=== PATIENT | female | born 1935 | race Caucasian/White ===

== ENCOUNTER → 2018-12-09 | Outpatient (REF) | payer MEDICARE, BC ==
[~2018-12-09] MED LIST: /COSOOPD10 OU; /WARF25TA PO; ACET50TA PO; AMBI5TAB PO; AUGM875T28 PO; BIMA01SOL OU; BRIM1OPD OU; BRIM2OPD OU; CIPR-249 PO; COSO1SOL3 OU; IMIT5SPR; IMMITREX PO; MOTRIN PO; MULTLIQ7 PO; ONDA4TAB6 PO; PERC7.5T12 PO; TRAM50TA2 PO; VITA100066 PO; VITAMIN; VITAMIN D PO; VITMTA PO; [UNRECOGNIZED DRUG - REMARK] OD
[2018-12-09 14:31] LABS: INFLUENZA A AMPLIFICATION NEGATIVE (NEGATIVE); INFLUENZA B AMPLIFICATION NEGATIVE (NEGATIVE)
== END ==
LOC: M LAB REF 13:22
PROVIDERS: ATTEND Nurse Practitioner Adult Health
DX: R50.9 Fever, unspecified (principal)

== ENCOUNTER 2019-01-25 09:17 | Day surgery (SDC) | payer MEDICARE, BC ==
[~2019-01-25] VITALS: Ht 152.4 cm; Wt 74.8 kg
[~2019-01-25 09:17] MED LIST changes: +ACETAMINOPHEN 325 MG TAB PO PRN; +BSS with VANC/TOB/EPI for EYE CASES IR ONE; +CEFUROXIME 1MG/0.1ML INTRACAMERAL INJ As Ordered ONE; +CYCLOPENTOLATE 2% OPHTH SOLN 2ML BTL OS ONE; +HEALON DUET PRO(HEALON 10MG/ML 0.55ML & HEALON ENDOCOAT 30MG/ML 0.85ML) As Ordered ONE; +LIDOCAINE 1% SDV 5 ML VIAL As Ordered ONE; +LIDOCAINE 3.5 % 1ML OPHTH TOPICAL GEL OU ONE; +OFLOXACIN 0.3 % (OCUFLOX) OPTH SOL 5ML OS ONE; +PHENYLEPHRINE 2.5% OPHTH SOL 2ML OS ONE; +PHENYLEPHRINE HCL 10 % OPHTH. SOL 5ML OS PRN; +POVIDONE-IODINE 5% OPHTH PREP SOL 30ML As Ordered ONE; +PROPARACAINE 0.5% OPHTH SOL 15ML OS PRN; +TROPICAMIDE 1% OPHTH SOLN 2ML OS ONE
[2019-01-25] MEDS ORDERED: fentaNYL 100 MCG/2 ML INJECTION (J3010) As Ordered ONE (10:23)
[2019-01-25] MEDS ORDERED: MIDAZOLAM INJ 2 MG/2 ML VIAL (J2250) As Ordered ONE (10:23)
[2019-01-25] MEDS ORDERED: HEALON DUET PRO(HEALON 10MG/ML 0.55ML & HEALON ENDOCOAT 30MG/ML 0.85ML) As Ordered ONE ×2 (10:40→10:51)
[2019-01-25] MEDS ORDERED: NORCO, ANEXSIA 5/325MG TABLET (HYDROcodone/ACETAMINOPHEN) PO PRN (11:15)
[2019-01-25] MEDS ORDERED: TRIMETHOBENZAMIDE 300 MG CAP PO PRN (11:15)
[2019-01-25] MEDS ORDERED: LR 1,000 ML IV SCH (11:15)
[2019-01-25] MEDS ORDERED: AcetaZOLAMIDE 500 MG ER CAP PO ONE (11:15)
[2019-01-25] MEDS ORDERED: fentaNYL 100 MCG/2 ML INJECTION (J3010) IV PRN (11:15)
[2019-01-25] MEDS ORDERED: KETOROLAC 0.5% OPHTH SOLN OS ONE (11:15)
[2019-01-25 11:30] VITALS: BP 140/60
--- NOTE | 2019-01-25 22:17 | RO ---
DATE OF PROCEDURE: 01/25/2019 PREPROCEDURE DIAGNOSIS: Cataract and glaucoma left eye. POSTPROCEDURE DIAGNOSIS: Cataract and glaucoma left eye. PROCEDURE: Phacoemulsification with intraocular lens implantation with the help of Optiwave Refractive Analysis (ORA). Intraocular lens power used was [id number], 21 diopters along with endocyclophotocoagulation and placement of the iStent inject. Reference number is [id number]. SURGEON: Dr. Reba Kuhn SODA TESTER: None. ANESTHESIA: COMPLICATIONS: None. DESCRIPTION OF PROCEDURE: The patient was brought to the operating room and laid in supine position. The eye was prepped and draped in a sterile fashion for ophthalmic surgery and a lid speculum was placed. Side[place] incision was made and EndoCoat was injected into the anterior chamber. Temporal clear corneal incision was made with a 2.5 mm keratome followed by injection of a 7 mm Malyugin ring to dilate the pupil with the help of the Malyugin hook. Capsulorrhexis was then done followed by hydrodissection. Phacoemulsification was done in a divide and conquer method within the capsular bag followed by aspiration of the cortical material using irrigation and aspiration cannula. Healon was then placed into the capsular bag, intraocular pressure was checked and was noted to be satisfactory. Multiple ORA calculations were taken and intraocular lens power chosen. Healon was then placed in the ciliary sulcus after removing the Malyugin ring with the help of the Malyugin hook. Endocyclophotocoagulation was done to 180 degrees at 0.25 milliwatts with the help of the EndoProbe visualizing on the video screen. Good results were noted by shrinking of the ciliary processes. Healon was then placed in the anterior chamber. Patient's head was turned away from the surgeon and under high magnification with the help of the Gonia lens, iStents were placed about 20 degrees apart nasally. Excess viscoelastic was aspirated, wound was hydrated, intracameral moxifloxacin was given and patient was returned to the recovery room after removal of the lid speculum. Postoperative instructions were given in detail in the postoperative area.
== END 2019-01-25 11:38 | disposition home or self-care (01) ==
LOC: M SDC 09:17
PROVIDERS: ATTEND Ophthalmology
DX: H25.9 Unspecified age-related cataract (principal); H21.562 Pupillary abnormality, left eye; H40.812 Glaucoma with increased episcleral venous pressure, left eye; G43.909 Migraine, unspecified, not intractable, without status migrainosus; Z79.899 Other long term (current) drug therapy
CPT/HCPCS: 66183; 66711; 66982; C1783; J2250; J3010; V2632

== ENCOUNTER → 2019-04-06 | Outpatient (CLI) | payer MEDICARE, BC ==
[~2019-04-06] MED LIST changes: -/WARF25TA PO; -ACET50TA PO; -ACETAMINOPHEN 325 MG TAB PO PRN; -BSS with VANC/TOB/EPI for EYE CASES IR ONE; -CEFUROXIME 1MG/0.1ML INTRACAMERAL INJ As Ordered ONE; +COUM1TAB18 PO; -CYCLOPENTOLATE 2% OPHTH SOLN 2ML BTL OS ONE; -HEALON DUET PRO(HEALON 10MG/ML 0.55ML & HEALON ENDOCOAT 30MG/ML 0.85ML) As Ordered ONE; -LIDOCAINE 1% SDV 5 ML VIAL As Ordered ONE; -LIDOCAINE 3.5 % 1ML OPHTH TOPICAL GEL OU ONE; +MAPA500T17 PO; -OFLOXACIN 0.3 % (OCUFLOX) OPTH SOL 5ML OS ONE; -PHENYLEPHRINE 2.5% OPHTH SOL 2ML OS ONE; -PHENYLEPHRINE HCL 10 % OPHTH. SOL 5ML OS PRN; -POVIDONE-IODINE 5% OPHTH PREP SOL 30ML As Ordered ONE; -PROPARACAINE 0.5% OPHTH SOL 15ML OS PRN; -TROPICAMIDE 1% OPHTH SOLN 2ML OS ONE
[2019-04-06 11:01] LABS: HEMATOCRIT 40.9 % (36.0-47.0); HEMOGLOBIN 12.9 g/dl (12.0-15.5); MEAN CORPUSCULAR HEMOGLOBIN 29.5 pg (27.0-33.0); MEAN CORPUSCULAR HGB CONC 31.5 g/dl (32.0-36.5); MEAN CORPUSCULAR VOLUME 93.4 fl (80.0-96.0); PLATELET COUNT, AUTOMATED 311 10^3/uL (150-450); RED BLOOD COUNT 4.38 10^6/uL (4.00-5.40); WHITE BLOOD COUNT 4.8 10^3/uL (4.0-10.0)
[2019-04-06 11:11] LABS: INR 0.94; PROTHROMBIN TIME 12.7 SECONDS (12.1-14.4)
[2019-04-06 11:30] LABS: ALBUMIN 4.1 GM/DL (3.2-5.2); ALT/SGPT 26 U/L (12-78); BILIRUBIN,TOTAL 0.5 MG/DL (0.2-1.0); BLOOD UREA NITROGEN 17 MG/DL (7-18); CALCIUM LEVEL 9.1 MG/DL (8.8-10.2); CARBON DIOXIDE LEVEL 30 MEQ/L (21-32); CHLORIDE LEVEL 106 MEQ/L (98-107); CREATININE FOR GFR 0.82 MG/DL (0.55-1.30); GLOMERULAR FILTRATION RATE > 60.0 (>32); GLUCOSE, FASTING 116 MG/DL (70-100); POTASSIUM SERUM 4.4 MEQ/L (3.5-5.1); SODIUM LEVEL 143 MEQ/L (136-145); TOTAL PROTEIN 6.9 GM/DL (6.4-8.2)
[2019-04-06 11:46] LABS: ERYTHROCYTE SEDIMENTATION RATE 9 mm/hr (0-30)
--- NOTE | 2019-04-06 14:09 | REP ---
Chest two views HISTORY: Preop Comparison: 02/08/2016 A 4 mm parenchymal density is present in the right lower lobe unchanged compared to the previous study. The left lung is clear. The heart is normal in size. The pulmonary vasculature is normal in appearance. The bony structure is intact. IMPRESSION: No acute disease. Electronically Signed by Petr Raygoza MD 04/06/2019 02:00 P
--- NOTE | 2019-04-06 20:54 | ECGEPIP ---
[facility] Test Date: 2019-04-06 Pat Name: PADMINI SUNG Department: Room: - Gender: Female Business Process Engineer: RF : [id number] Requested By: Bella Ingram Order Number: [id number] Reading MD: Zachariah Guerrero Measurements Intervals Palmer Rate: 73 P: 70 VA: 260 QRS: QRSD: 86 T: 60 QT: 421 QTc: 466 Interpretive Statements Normal sinus rhythm with PACs. First-degree AV block Left axis deviation - left anterior hemiblock Somewhat low voltages with slow precordial R-wave progression, persistent S waves V5 and V6, and QS pattern III and aVF; body habitus versus pulmonary disease. Rule out prior septal/ Inferior injury No prior tracing for comparison. Clincal correlation advised Electronically Signed on 04-06-2019 20:53:55 EDT by Zachariah Guerrero
== END ==
LOC: M LAB 10:09
PROVIDERS: ATTEND Orthopaedic Surgery
DX: Z01.818 Encounter for other preprocedural examination (principal); R94.31 Abnormal electrocardiogram [ECG] [EKG]; M17.12 Unilateral primary osteoarthritis, left knee

== ENCOUNTER 2019-04-26 10:46 | Inpatient (IN) | payer MEDICARE, BC ==
--- NOTE | 2019-04-19 10:00 | HPE ---
DATE OF ADMISSION: 04/26/2019 ATTENDING PHYSICIAN: Dr. Juan Jose Duke CHIEF COMPLAINT: Left knee pain and stiffness. HISTORY: This is a pleasant 84-year-old female patient with progressively worsening left knee pain and stiffness. She has failed to improve with conservative management to include injections in the knee. She has pain with weightbearing activities and activities of daily living. She has elected for surgery for her continued symptoms. She has been consented by Dr. Duke for a left total knee arthroplasty. X-rays of her left knee notable for end-stage degenerative changes of the left knee. Medical optimization by Dr. Deshpande. ALLERGIES: No known drug allergies. CURRENT MEDICATIONS: Imitrex nasal inhaler as needed. She has not used that in years. She also has three eye drops prescribed for her for her glaucoma. She will bring those with her to the hospital. She takes vitamin D, and a daily multivitamin. MEDICAL CONDITIONS: End-stage osteoarthritis of the left knee. Glaucoma Migraines. PAST SURGICAL HISTORY: She has had a total knee arthroplasty on the right side. She has had a dilation and curettage. Two breast biopsies. Thyroid removed. FAMILY HISTORY: Heart disease, diabetes. SOCIAL HISTORY: She does not smoke. She does not use alcohol. She continues to work. REVIEW OF SYSTEMS: Denies fever chills. Denies chest pain, shortness of breath or cough. Denies difficulty breathing. Denies abdominal pain. Notes persistent pain in her left knee with activities of daily living. Denies nausea or vomiting. Denies recent upper respiratory (URI) or urinary tract infection (UTI). symptoms. PHYSICAL EXAMINATION: Today this is an alert, well-nourished, well-developed female patient. She ambulates with a limping gait. She favors her left side. Exam of the left knee reveals the skin to be intact. No erythema, edema or ecchymosis. Tenderness both medially and laterally. Range of motion is near full . There is tenderness posteriorly as well. Patellar ground is irritable. The calf is soft, nontender to palpation. She can sensate light touch. She has a well perfused left lower extremity. Neck is supple without adenopathy or jugular venous distention (JVD). Lungs are clear to auscultation without rales or wheeze. Heart regular rate and rhythm. Abdomen: Bowel sounds are present. CURRENT VITAL SIGNS: Blood pressure 125/60, height 60 inches, weight 168 pounds. Pulse 63, respirations 14, temperature 97.9. LABORATORY DATA: PT 12.7, INR 0.94, sed rate 9. Glucose 116, BUN 117, creatinine 0.82, sodium 143, potassium 4.4. WBC count 4.8, RBC count 4.3, hemoglobin 12.9, hematocrit 40.9. EKG: Sinus rhythm with first degree AV block. Chest x-ray: No acute cardiopulmonary disease process noted. IMPRESSION: End-stage osteoarthritis of the left knee. PLAN: She has consented for a left total knee arthroplasty by Dr. Duke. PAN
[~2019-04-26] VITALS: Ht 152.4 cm; Wt 77.0 kg
[2019-04-26] VITALS (19 sets, daily range): BP systolic 99–161; BP diastolic 49–75
[~2019-04-26 10:46] MED LIST changes: +ACETAMINOPHEN 500 MG TAB PO ONE; +BRIM1OPD OD; -BRIM1OPD OU; +LIDOCAINE 1% MDV 20ML VIAL SQ PRN; +LR 1,000 ML IV ONE
[2019-04-26] MEDS ORDERED: MIDAZOLAM INJ 2 MG/2 ML VIAL (J2250) As Ordered ONE (11:52)
[2019-04-26] MEDS ORDERED: fentaNYL 100 MCG/2 ML INJECTION (J3010) As Ordered ONE (11:52)
[2019-04-26] MEDS: fentaNYL 100 MCG/2 ML INJECTION (J3010) IV PRN ×2 (12:03→12:06)
[2019-04-26] MEDS ORDERED: BUPIVACAINE LIPOSOME/PF 1.3% 20ML VIAL (13.3MG/ML)(EXPAREL)(C9290 PER1MG) As Ordered ONE (12:18)
[2019-04-26] MEDS ORDERED: MIDAZOLAM INJ 2 MG/2 ML VIAL (J2250) IV PRN (12:30)
[2019-04-26] MEDS ORDERED: PROPOFOL 200 MG/20 ML VIAL As Ordered ONE (12:37)
[2019-04-26] MEDS ORDERED: LIDOCAINE 2% INJ 100 MG/5 ML SDV (FOR ANES.) As Ordered ONE (12:37)
[2019-04-26] MEDS ORDERED: BUPIVACAINE/DEXTROSE 0.75% 2 ML AMP As Ordered ONE (13:04)
[2019-04-26] MEDS ORDERED: dexameTHASONE 10 MG/1 ML VIAL PRES.FREE (J1100) ONE (13:12)
[2019-04-26] MEDS ORDERED: EPINEPHrine INJ 1 MG/ML 1ML AMP ONE (13:12)
[2019-04-26] MEDS ORDERED: ROPIvacaine 0.5% 30 ML INJECTION (J2795 PER 1MG) ONE (13:12)
[2019-04-26] MEDS ORDERED: PHENYLephrine HCL 500 MCG/5 ML (100MCG/ML) SYRINGE (J2370) As Ordered ONE (13:30)
[2019-04-26] MEDS ORDERED: ePHEDrine SULFATE 25 MG/5 ML(5MG/ML) SYRINGE As Ordered ONE (13:41)
[2019-04-26] MEDS ORDERED: BUPIVACAINE HCL 0.25% 10 ML VIAL As Ordered ONE (13:52)
[2019-04-26] MEDS ORDERED: ceFAZolin 1GM INJ (J0690 PER 500MG) As Ordered ONE (13:52)
[2019-04-26] MEDS ORDERED: EPINEPHrine INJ 1 MG/ML 1ML AMP As Ordered ONE (13:53)
[2019-04-26] MEDS ORDERED: PERCOCET 5MG/325MG TAB PO PRN (15:15)
[2019-04-26] MEDS ORDERED: ACETAMINOPHEN TAB 650MG DOSE (2X325MG) PO PRN (15:15)
[2019-04-26] MEDS ORDERED: ONDANSETRON 4MG/2ML VIAL (J2405) IV PRN (15:15)
[2019-04-26] MEDS ORDERED: FLEET ENEMA PR PRN (15:15)
[2019-04-26] MEDS ORDERED: METOCLOPRAMIDE INJ 10MG/2ML VIAL (J2765) IV PRN (15:15)
[2019-04-26] MEDS ORDERED: LR 1,000 ML IV SCH ×2 (15:15)
[2019-04-26] MEDS ORDERED: fentaNYL 100 MCG/2 ML INJECTION (J3010) IV PRN (15:15)
[2019-04-26] MEDS ORDERED: HYDROMORPHONE HCL 0.5 MG/ 0.5 ML SYRINGE (J1170 PER 1) IV PRN (15:30)
--- NOTE | 2019-04-26 15:37 | CR.PDOC ---
General Date of Consultation: Apr 26, 2019 Consultation REASON FOR CONSULTATION/CHIEF COMPLAINT: Who presented to [facility] for an elective procedure with orthopedic surgery HISTORY OF PRESENT ILLNESS: Patient is an 84-year-old female with PMHx of glaucoma and migraine headaches as well as end-stage osteoarthritis who presented to the [facility] for an elective orthopedic procedure. Patient was expressing persistent left knee pain from her osteoarthritis and had failed conservative therapy. She has been scheduled for an elective procedure or when she has received medical clearance from Dr. Deshpande. Patient had received blood work, EKG and CXR for clearance. Hospitalist services called for medical management. Patient was seen postoperatively. She denies any headache, nausea, vomiting, chest pain, shortness of breath, Anshul pain, constipation, diarrhea or discomfort with urination. Patient is does not report any fevers or chills in the last 2 weeks. ALLERGIES: Please see below. HOME MEDICATIONS: Please see below. PAST MEDICAL HISTORY: Glaucoma Migraine headaches PAST SURGICAL HISTORY: Total right knee arthroplasty 2013 Dilation and curettage greater than 20 years ago Hysterectomy 2 breast biopsies that were negative for malignancy Parathyroid resection FAMILY HISTORY: - Mother with a history of coronary artery disease and heart attack as well as uterine cancer - Father unknown history SOCIAL HISTORY: - Denies the use of alcohol, tobacco or illicit drugs - Denies recent travel or sick contacts - Lives with - Occupation; used to work at the [employer] plant in [place] REVIEW OF SYSTEMS: 10 point review of systems complete, all negative otherwise stated in HPI PHYSICAL EXAMINATION: - Vitals: BP 112/58, HR 93, RR 18, Sat 96%RA, Temp 96.1F - General: Lying in bed, No acute distress, Speaking in full sentences, AAOx3 - HEENT: NC, AT, PERRLA - CVS: RRR, +S1S2, - Murmurs / rubs / gallops - Lungs: Fair air entry bilaterally, No wheezing / rales / rhonchi - Abdomen: Soft, Non-distended, Non-tender - Extremities: No lower extremity edema, No calf tenderness, L knee in dressing - Neuro: No focal motor or sensory deficit - Skin: No visible rashes LABORATORY DATA: Please see below. ASSESSMENT/PLAN: Left knee pain - likely 2/2 osteoarthritis - s/p total left knee arthroplasty (POD#0) - Presented to [facility] for an elective procedure with orthopedic surgery - Patient has received medical clearance from her outpatient provider, Dr. Deshpande - Pain control, anticoagulation and physical therapy at the direction of orthopedic surgery Migraine headaches - Currently does not experience any headaches - Patient take Sumatriptan PRN Glaucoma - c/w Latanoprost (for Bimatoprost), Dorzolamide / Timolol, Brimonidine Vitamin D deficiency - c/w Vitamin D supplementation DVT prophylaxis - as per orthopedic surgery Vital Signs/I&O Vital Signs Date Time Temp Pulse Resp B/P (MAP) Pulse Ox O2 Delivery O2 Flow Rate FiO2 04/26/19 15:20 91 18 121/58 (79) 93 04/26/19 15:05 96.1 04/26/19 13:00 3 Allergies Coded Allergies: No Known Allergies (Unverified , 04/26/19) Home Medications Scheduled Bimatoprost (Lumigan) 50 Drop/2.5 Ml Victoria, 1 DROP OU QHS, (Reported) Brimonidine Tartrate (Alphagan P) 100 Drop/5 Ml Soln, 1 DROP OD BID, (Reported) Cholecalciferol (Vitamin D3) (Vitamin D3) 1,000 Unit Tab, 1,000 UNIT PO DAILY, (Reported) Dorzolamide HCl/Timolol Maleat (Cosopt Eye Drops) 1 Ml Soln, 1 DROP OU BID, (Reported) Multivitamins (Thera M Plus Tablet) 1 Tab Tab, 1 TAB PO DAILY, (Reported) Scheduled PRN Sumatriptan (Imitrex) 5 Mg/Act Spr, 20 MG NA PRN PRN for MIGRAINE, (Reported) DINAH CORTEZ MD Apr 26, 2019 15:37
[2019-04-26] MEDS ORDERED: SUMAtriptan SUCCINATE 25 MG TAB PO PRN (15:45)
--- NOTE | 2019-04-26 15:58 | REP ---
93 views postoperative study: There is a total knee arthroplasty with the components tightly applied and in satisfactory positions alignment. Skin rayray are incidentally identified. Electronically Signed by Saad Weathers MD 04/26/2019 03:50 P
[2019-04-26] MEDS: HYDROMORPHONE HCL 0.5 MG/ 0.5 ML SYRINGE (J1170 PER 1) IV PRN ×2 (17:46→22:25)
[2019-04-26] MEDS: BRIMONIDINE 0.1% OPHTH SOLN 5 ML OD SCH (21:44)
[2019-04-26] MEDS: LATANOPROST 0.005% OPHTH SOLN 2.5 ML OU SCH (21:47)
[2019-04-26] MEDS: COSOPT OCUMETER PLUS 10ML (DORZOLAMIDE/TIMOLOL) OU SCH (21:47)
[2019-04-27] MEDS: HYDROMORPHONE HCL 0.5 MG/ 0.5 ML SYRINGE (J1170 PER 1) IV PRN (05:24)
[2019-04-27 05:50] VITALS: BP 123/65
[2019-04-27] MEDS ORDERED: PERCOCET 5MG/325MG TAB PO PRN (06:00)
[2019-04-27 06:38] LABS: HEMATOCRIT 31.4 % (36.0-47.0); MEAN CORPUSCULAR HEMOGLOBIN 29.2 pg (27.0-33.0); MEAN CORPUSCULAR HGB CONC 31.8 g/dl (32.0-36.5); MEAN CORPUSCULAR VOLUME 91.8 fl (80.0-96.0); PLATELET COUNT, AUTOMATED 263 10^3/uL (150-450); RED BLOOD COUNT 3.42 10^6/uL (4.00-5.40)
[2019-04-27 07:06] LABS: BLOOD UREA NITROGEN 14 MG/DL (7-18); CALCIUM LEVEL 8.3 MG/DL (8.8-10.2); CARBON DIOXIDE LEVEL 28 MEQ/L (21-32); CHLORIDE LEVEL 103 MEQ/L (98-107); CREATININE FOR GFR 0.68 MG/DL (0.55-1.30); GLOMERULAR FILTRATION RATE > 60.0 (>32); GLUCOSE, FASTING 116 MG/DL (70-100); POTASSIUM SERUM 4.2 MEQ/L (3.5-5.1); SODIUM LEVEL 138 MEQ/L (136-145)
[2019-04-27] MEDS: VITAMIN D 1,000 INTERNATIONAL UNITS TABLET PO SCH (08:05)
[2019-04-27] MEDS: MIRALAX *UNIT DOSE* 17GM PACKET PO SCH (08:05)
[2019-04-27] MEDS: MULTIVITAMINS/MINERALS THERAP 1 TAB PO SCH (08:05)
[2019-04-27] MEDS: MOM 30ML SUSPENSION UDC PO SCH (08:05)
[2019-04-27] MEDS: COSOPT OCUMETER PLUS 10ML (DORZOLAMIDE/TIMOLOL) OU SCH ×2 (08:06→20:34)
[2019-04-27] MEDS: BRIMONIDINE 0.1% OPHTH SOLN 5 ML OD SCH ×2 (08:06→20:34)
--- NOTE | 2019-04-27 09:07 | RO ---
DATE OF PROCEDURE: 04/26/2019 PREOPERATIVE DIAGNOSIS: Varus tricompartmental degenerative arthritis of the left knee. POSTOPERATIVE DIAGNOSIS: Varus tricompartmental degenerative arthritis of the left knee. PROCEDURE: Left total knee arthroplasty using a size 5 cruciate retaining femoral component and a size tibial tray, 10 mm rotating platform and polyethylene insert and 35 mm polyethylene button. All of the bones were cemented. Prostheses made by [employer] and [employer] knee. SURGEON: Dr. Bella Duke CUT OFF MACHINE OPERATOR: Mr. Bahman Gonzalez ANESTHESIA: Left femoral nerve block and then a spinal anesthetic. COMPLICATIONS: None. SPECIMENS: Joint surface. ESTIMATED BLOOD LOSS: 20 mL. PROCEDURE: Antibiotics were given intravenously preoperatively and then a successful left femoral nerve block and then spinal anesthetic was induced. Tourniquet was placed left upper thigh and not inflated. Left lower extremity was carefully prepped and draped in the usual sterile fashion and elevated and after an appropriate time out the tourniquet was inflated. A longitudinal incision was made for a medial parapatellar approach to the knee. Bovie cautery was used to coagulate the crossing vessels. A medial parapatellar arthrotomy was performed. Subperiosteal dissection along the proximal medial and lateral tibial plateau was then performed and the patella was everted and the knee flexed. Drill was placed down the center of the femoral canal followed the intramedullary anabel and the distal femoral cutting jig set at 5 degree angle at 9 mm resection level for a left knee. The block was pinned into position. Distal femoral cut was performed. AP sizing jig measured for a size 5. 3 degrees of external dialed in and the pins were placed. 4-in-block applied. Anterior and posterior chamfer cuts were performed followed by the sulcus osteotomy. We then exposed the proximal tibia used the extramedullary alignment jig to estimate being parallel to the mechanical axis referencing off the very deeply dished medial and tibial condyle and then I checked on the good side. We are taking about 10 mm. Thus I pinned the block secondary check with an extramedullary anabel confirmed we appeared to be parallel to the mechanical axis. Thus the proximal tibial osteotomy was performed and then we placed the laminar harvest contractor laterally and performed a completion medial meniscectomy debridement of the posterior medial osteophytes. Placed one harvest contractor medially and then debrided the posterolateral osteophytes and due to completion partial lateral meniscectomy .The spacer block fit reasonably symmetrically but she was tight medially and I did go back and do an additional posteromedial release all the way back around the tibia and this did improve her tightness medially. Eventually we were able to get up to a size 10 in both flexion and extension and this had reasonable stability to varus, valgus stress testing. We closed the proximal tibia, sized for a #5 tray which is pinned into position and then I did shave off the additional medial bone along the medial edge of the tray to allow for further medial release. I did go back also and release some of the PCL to help minimize any posteromedial tightness. The trial polyethylene was then placed and the trial femoral component fit nicely and she has good stability to varus, valgus and AP stress testing. We brought the knee into extension everted the patella and performed a patellar osteotomy, lug hole sized for a 35 button and lug hole was drilled, trial placed and patellofemoral tracking was anatomic. We drilled the lug holes for the femur. We then removed all the trial components and placed Exparel in the subperiosteal tissues on the distal femur and the proximal tibia and then Mr. Gonzalez mixed the cement on the back table as I prepared the bony surfaces for cementing with a copious amount of pulsatile lavage irrigant solution. He was also critical to the success of this difficult operation by helping with appropriate soft-tissue retraction and help to manipulate the knee, helped to mix the cement, helped to close the wound, helped to prepare the patient and amongst many other tasks allowing me to perform the operation smoothly, efficiently and safely. Once all of the bony surfaces were thoroughly irrigated and dried I cemented the tibial tray and removed excess cement and placed the polyethylene and cemented the femoral component and removed excess cement and brought the knee into extension, everted the patella and then cemented the patellar component and removing excess cement and held it with a clamp with the knee in extension until the cement hardened and as we were waiting we copiously irrigated out the knee joint again and placed TXA and began closing the apex of the arthrotomy with two #1 PDS sutures and the medial parapatellar area was closed with a #1 PDS suture a running a double arm #1 Stratafix used to close the capsule and we irrigated between layers, let the tourniquet down at this point. Closed the deep subdermal tissues with interrupted #2-0 PDS sutures. Skin was closed with rayray covered by Adaptic and an Optifoam dry sterile bulky dressing. She was then transferred to the recovery room in stable condition. There are no intraoperative complications.
--- NOTE | 2019-04-27 10:15 | IPNPDOC ---
Text Note Date of Service The patient was seen on 04/27/19. NOTE Subjective: Patient is an 84-year-old female with PMHx of glaucoma and migraine headaches as well as end-stage osteoarthritis who presented to the [facility] for an elective orthopedic procedure. Patient was expressing persistent left knee pain from her osteoarthritis and had failed conservative therapy. She has been scheduled for an elective procedure or when she has received medical clearance from Dr. Deshpande. Patient had received blood work, EKG and CXR for clearance. Hospitalist services called for medical management. Patient was seen and examined at the bedside. Patient reports that she denies any chest pain, shortness breath, palpitations. She has been out of bed, but still reports some discomfort to her left knee. She has not yet had any bowel movements or passed any gas. Objective: Vitals (See below) General: Lying in bed, no acute distress, comfortable, AAOx3 HEENT: NC, AT CVS: +S1S2 Lungs: Fair air entry b/l, -w/r/r Abdomen: Soft, ND, NT Extremities: - Edema, - Calf tenderness, L knee in dressing Assessment and plan: Left knee pain - likely 2/2 osteoarthritis - s/p total left knee arthroplasty (POD#1) - Presented to [facility] for an elective procedure with orthopedic surgery - Patient has received medical clearance from her outpatient provider, Dr. Deshpande - Pain control, anticoagulation and physical therapy at the direction of orthopedic surgery - Will work with PT today; anticipate discharge today Migraine headaches - Currently does not experience any headaches - Patient take Sumatriptan PRN; will c/w Sumatriptan PO while inpatient Glaucoma - c/w Latanoprost (for Bimatoprost), Dorzolamide / Timolol, Brimonidine Vitamin D deficiency - c/w Vitamin D supplementation DVT prophylaxis - as per orthopedic surgery VS,Fishbone, I+O VS, Fishbone, I+O Laboratory Tests 04/27/19 06:13 Red Blood Count 3.42 L, Mean Corpuscular Volume 91.8, Mean Corpuscular Hemoglobin 29.2, Mean Corpuscular Hemoglobin Concent 31.8 L, Red Cell Distribution Width 13.8, Calcium Level 8.3 L Vital Signs Date Time Temp Pulse Resp B/P (MAP) Pulse Ox O2 Delivery O2 Flow Rate FiO2 04/27/19 08:06 18 04/27/19 05:50 98.1 86 123/65 (84) 94 04/26/19 13:00 3 I&O- Last 24 Hours up to 6 AM 04/27/19 06:00 Intake Total 1140 ml Output Total 1700 ml Balance -560 ml DINAH CORTEZ MD Apr 27, 2019 10:15
[2019-04-27] MEDS ORDERED: MORPHINE 4 MG/ML 1ML VIAL/SYRINGE (J2270) IV PRN (10:45)
[2019-04-27 14:00] VITALS: BP 118/62
[2019-04-27] MEDS: ACETAMINOPHEN 500 MG TAB PO SCH ×2 (14:16→20:33)
[2019-04-27] MEDS: traMADol 50 MG TAB PO PRN ×2 (14:16→18:35)
[2019-04-27] MEDS ORDERED: PROMETHAZINE INJ 25 MG/ML VIAL (J2550) As Ordered ONE (15:49)
[2019-04-27] MEDS: RIVAROXABAN 10 MG TAB (XARELTO) PO SCH (18:34)
[2019-04-27] MEDS: LATANOPROST 0.005% OPHTH SOLN 2.5 ML OU SCH (20:34)
[2019-04-27 22:00] VITALS: BP 124/55
[2019-04-28] MEDS: traMADol 50 MG TAB PO PRN ×4 (04:31→17:31)
[2019-04-28] MEDS: ACETAMINOPHEN 500 MG TAB PO SCH ×3 (05:00→21:00)
[2019-04-28] MEDS ORDERED: XARE10TA PO (05:54)
[2019-04-28] MEDS ORDERED: TRAM50TA2 PO (05:54)
[2019-04-28 06:00] VITALS: BP 141/77
[2019-04-28 06:51] LABS: HEMATOCRIT 28.9 % (36.0-47.0); HEMOGLOBIN 9.2 g/dl (12.0-15.5); MEAN CORPUSCULAR HEMOGLOBIN 28.8 pg (27.0-33.0); MEAN CORPUSCULAR HGB CONC 31.8 g/dl (32.0-36.5); MEAN CORPUSCULAR VOLUME 90.3 fl (80.0-96.0); PLATELET COUNT, AUTOMATED 223 10^3/uL (150-450); WHITE BLOOD COUNT 8.5 10^3/uL (4.0-10.0)
[2019-04-28 07:11] LABS: BLOOD UREA NITROGEN 16 MG/DL (7-18); CARBON DIOXIDE LEVEL 29 MEQ/L (21-32); CHLORIDE LEVEL 101 MEQ/L (98-107); CREATININE FOR GFR 0.56 MG/DL (0.55-1.30); GLOMERULAR FILTRATION RATE > 60.0 (>32); GLUCOSE, FASTING 120 MG/DL (70-100); SODIUM LEVEL 137 MEQ/L (136-145)
[2019-04-28] MEDS: MOM 30ML SUSPENSION UDC PO SCH (08:54)
[2019-04-28] MEDS: MIRALAX *UNIT DOSE* 17GM PACKET PO SCH (08:54)
[2019-04-28] MEDS: VITAMIN D 1,000 INTERNATIONAL UNITS TABLET PO SCH (08:55)
[2019-04-28] MEDS: MULTIVITAMINS/MINERALS THERAP 1 TAB PO SCH (08:55)
[2019-04-28] MEDS: BRIMONIDINE 0.1% OPHTH SOLN 5 ML OD SCH ×2 (08:56→20:58)
[2019-04-28] MEDS: COSOPT OCUMETER PLUS 10ML (DORZOLAMIDE/TIMOLOL) OU SCH ×2 (08:56→20:58)
--- NOTE | 2019-04-28 11:11 | IPNPDOC ---
Text Note Date of Service The patient was seen on 04/28/19. NOTE Subjective: Patient is an 84-year-old female with PMHx of glaucoma and migraine headaches as well as end-stage osteoarthritis who presented to the [facility] for an elective orthopedic procedure. Patient was expressing persistent left knee pain from her osteoarthritis and had failed conservative therapy. She has been scheduled for an elective procedure or when she has received medical clearance from Dr. Deshpande. Patient had received blood work, EKG and CXR for clearance. Hospitalist services called for medical management. Patient was seen and examined at the bedside. Patient reports that this morning she was experiencing worsening of her pain. Patient denies any chest pain, short of breath or palpitations. Denies any urinary discomfort. Denies any abdominal pain Objective: Vitals (See below) General: Lying in bed, no acute distress, comfortable, AAOx3 HEENT: NC, AT CVS: +S1S2 Lungs: Air entry is fair bilaterally without rhonchi, rales or wheezing Abdomen: Soft, nondistended and nontender Extremities: No evidence of lower extremity edema, - Calf tenderness, L knee in dressing Assessment and plan: Left knee pain - likely 2/2 osteoarthritis - s/p total left knee arthroplasty (POD#2) - Presented to [facility] for an elective procedure with orthopedic surgery - Patient has received medical clearance from her outpatient provider, Dr. Deshpande - Pain control, anticoagulation and physical therapy at the direction of orthopedic surgery - c/w PT; possible discharge today Migraine headaches - Currently does not experience any headaches - Patient take Nasal Sumatriptan PRN; will c/w Sumatriptan PO while inpatient Glaucoma - c/w Latanoprost (for Bimatoprost), Dorzolamide / Timolol, Brimonidine Vitamin D deficiency - c/w Vitamin D supplementation DVT prophylaxis - as per orthopedic surgery Disposition: - Awaiting PT clearance; possible DC today VS,Fishbone, I+O VS, Fishbone, I+O Laboratory Tests 04/28/19 06:35 Red Blood Count 3.20 L, Mean Corpuscular Volume 90.3, Mean Corpuscular Hemoglobin 28.8, Mean Corpuscular Hemoglobin Concent 31.8 L, Red Cell Distribution Width 13.9, Calcium Level 8.0 L Vital Signs Date Time Temp Pulse Resp B/P (MAP) Pulse Ox O2 Delivery O2 Flow Rate FiO2 6/26/19 08:55 18 04/28/19 06:00 98.1 80 141/77 (98) 97 04/26/19 13:00 3 I&O- Last 24 Hours up to 6 AM 04/28/19 06:00 Intake Total 840 ml Output Total 720 ml Balance 120 ml DINAH CORTEZ MD Apr 28, 2019 11:11
[2019-04-28 14:00] VITALS: BP 135/72
[2019-04-28] MEDS: RIVAROXABAN 10 MG TAB (XARELTO) PO SCH (17:30)
[2019-04-28] MEDS: LATANOPROST 0.005% OPHTH SOLN 2.5 ML OU SCH (20:58)
[2019-04-28 22:00] VITALS: BP 118/62
[2019-04-29 06:00] VITALS: BP 123/62
[2019-04-29] MEDS: ACETAMINOPHEN 500 MG TAB PO SCH (06:04)
[2019-04-29] MEDS: traMADol 50 MG TAB PO PRN (06:04)
[2019-04-29 07:24] LABS: HEMATOCRIT 29.3 % (36.0-47.0); HEMOGLOBIN 9.3 g/dl (12.0-15.5); MEAN CORPUSCULAR HGB CONC 31.7 g/dl (32.0-36.5); MEAN CORPUSCULAR VOLUME 94.5 fl (80.0-96.0); PLATELET COUNT, AUTOMATED 220 10^3/uL (150-450); WHITE BLOOD COUNT 7.6 10^3/uL (4.0-10.0)
[2019-04-29 07:49] LABS: BLOOD UREA NITROGEN 13 MG/DL (7-18); CARBON DIOXIDE LEVEL 30 MEQ/L (21-32); CHLORIDE LEVEL 104 MEQ/L (98-107); CREATININE FOR GFR 0.61 MG/DL (0.55-1.30); GLOMERULAR FILTRATION RATE > 60.0 (>32); GLUCOSE, FASTING 96 MG/DL (70-100); POTASSIUM SERUM 3.9 MEQ/L (3.5-5.1); SODIUM LEVEL 138 MEQ/L (136-145)
[2019-04-29] MEDS: MOM 30ML SUSPENSION UDC PO SCH (09:00)
[2019-04-29] MEDS: MIRALAX *UNIT DOSE* 17GM PACKET PO SCH (09:00)
[2019-04-29] MEDS: VITAMIN D 1,000 INTERNATIONAL UNITS TABLET PO SCH (09:31)
[2019-04-29] MEDS: MULTIVITAMINS/MINERALS THERAP 1 TAB PO SCH (09:32)
[2019-04-29] MEDS: COSOPT OCUMETER PLUS 10ML (DORZOLAMIDE/TIMOLOL) OU SCH (09:33)
[2019-04-29] MEDS: BRIMONIDINE 0.1% OPHTH SOLN 5 ML OD SCH (09:33)
[2019-04-29 10:16] VITALS: BP 122/60
[2019-04-29 10:31] VITALS: BP 122/60
--- NOTE | 2019-05-03 13:30 | DSES ---
DATE OF ADMISSION: 04/26/2019 DATE OF DISCHARGE: 04/29/2019 ADMITTING DIAGNOSIS: Osteoarthritis of left knee. OTHER DIAGNOSES: 1. Glaucoma. 2. Migraines. DISCHARGE DIAGNOSIS: Osteoarthritis left knee status post left total knee arthroplasty. OPERATION PERFORMED: Left total knee arthroplasty. HISTORY: This is a pleasant, 84-year-old female patient with progressively worsening left knee pain and stiffness. She failed to improve with conservative management. She was admitted for elective knee replacement on the left side. HOSPITAL COURSE: The patient was admitted on the day of surgery and underwent a left total knee arthroplasty which was uneventful. She did well in the postoperative period and her hospital course was without complications. She was up with physical therapy per the protocol and her pain was controlled. On the day of discharge, she was doing well and weight bearing as tolerated on her left lower extremity. She will move her left knee to prevent stiffness. She will use thromboembolic deterrent (YUE) stockings for 30 days postoperatively for deep vein thrombosis (DVT) prophylaxis. She will use Xarelto 10 mg per the protocol. She will resume her preoperative medications and diet. She will use oral pain medications for pain control. She will followup in our office in 10-14 days for surgical followup. Please refer to the medical record for further details.
== END 2019-04-29 12:45 | disposition home or self-care (01) | DRG 470 ==
LOC: M OR 10:46 → M MS5PR 16:00
PROVIDERS: ADMIT Orthopaedic Surgery; ATTEND Orthopaedic Surgery
PROC: 0SRD0J9 Replacement of Left Knee Joint with Synthetic Substitute, Cemented, Open Approach (ICD-10-PCS; principal; 2019-04-26 13:30)
DX: M17.12 Unilateral primary osteoarthritis, left knee (principal); G43.909 Migraine, unspecified, not intractable, without status migrainosus; H40.9 Unspecified glaucoma; Z96.651 Presence of right artificial knee joint; Z79.899 Other long term (current) drug therapy; E55.9 Vitamin D deficiency, unspecified

== ENCOUNTER 2019-05-05 11:37 | Emergency (ER) | payer MEDICARE, BC ==
[~2019-05-05] VITALS: Ht 152.4 cm; Wt 77.3 kg
[~2019-05-05 11:37] MED LIST changes: -ACETAMINOPHEN 500 MG TAB PO ONE; -LIDOCAINE 1% MDV 20ML VIAL SQ PRN; -LR 1,000 ML IV ONE; +XARE10TA PO
[2019-05-05] MEDS ORDERED: NS 1,000 ML IV SCH (13:04)
[2019-05-05] MEDS ORDERED: MORPHINE 4 MG/ML 1ML VIAL/SYRINGE (J2270) IV ONE (13:15)
--- NOTE | 2019-05-05 13:55 | REP ---
Clinical: Pain. Technique: AP, lateral, bilateral oblique views of the left ankle. Findings: Age-related osteopenia and degenerative changes are appreciated. Possible old fracture involving the fibular tip should be correlated clinically. Overlying lateral soft tissue swelling suggested. No further obvious acute fracture dislocation. Lateral view demonstrates calcaneal heal spur. Impression: Age-related degenerative changes. Lateral soft tissue swelling. Suspected old fibular tip fracture. Electronically Signed by Naeem Figueroa MD 05/05/2019 01:46 P
--- NOTE | 2019-05-05 13:56 | REP ---
Clinical: Pain. Technique: AP and lateral views of the left tibia / fibula. Findings: The patient is known to be status post left knee arthroplasty. Osteopenia and degenerative changes involving the tibia / fibula and ankle noted. No obvious acute fracture or dislocation. Suspected old distal fibular tip fracture. Calcaneal heal spur identified. Impression: Status post left knee arthroplasty. Suspected age-related changes as noted above. Electronically Signed by Naeem Figueroa MD 05/05/2019 01:48 P
--- NOTE | 2019-05-05 13:57 | REP ---
Clinical: Status post knee replacement. Technique AP, lateral, and bilateral oblique views of the left knee. Findings: The patient is status post left knee replacement with normal positioning and appearance to the femoral and tibial components. Overlying postsurgical changes appreciated. Impression: Status post left knee replacement. Postsurgical changes. No further acute pathology appreciated Electronically Signed by Naeem Figueroa MD 05/05/2019 01:49 P
--- NOTE | 2019-05-05 14:09 | REP ---
Left lower extremity Duplex Doppler venous ultrasound: Real time compression and duplex Doppler interrogation of the left lower extremity deep venous system is performed. The left common femoral, superficial femoral and popliteal veins are fully compressible with transducer pressure and demonstrate normal spontaneous and phasic flow, without evidence of deep venous thrombosis. Impression: No evidence of deep venous thrombosis of the left lower extremity femoral popliteal venous system. Electronically Signed by Saad Hudson MD 05/05/2019 02:01 P
[2019-05-05 14:27] LABS: BASO % 0.3 % (0.0-1.0); EOS # 0.4 10^3/uL (0.0-0.50); EOS % 4.5 % (0.0-3.0); HEMATOCRIT 33.8 % (36.0-47.0); HEMOGLOBIN 10.5 g/dl (12.0-15.5); LYMPH # 1.5 10^3/uL (1.5-4.5); MEAN CORPUSCULAR HEMOGLOBIN 29.6 pg (27.0-33.0); MEAN CORPUSCULAR HGB CONC 31.1 g/dl (32.0-36.5); MEAN CORPUSCULAR VOLUME 95.2 fl (80.0-96.0); MONO # 0.8 10^3/uL (0.0-0.8); MONO % 9.2 % (0.0-5.0); NEUTROPHILS % 68.3 % (36.0-66.0); PLATELET COUNT, AUTOMATED 428 10^3/uL (150-450); RED BLOOD COUNT 3.55 10^6/uL (4.00-5.40); WHITE BLOOD COUNT 8.7 10^3/uL (4.0-10.0)
[2019-05-05 14:36] LABS: INR 1.11
[2019-05-05 14:37] LABS: PARTIAL THROMBOPLASTIN TIME 33.7 SECONDS (25.0-38.4)
[2019-05-05 14:51] LABS: BLOOD UREA NITROGEN 15 MG/DL (7-18); CARBON DIOXIDE LEVEL 32 MEQ/L (21-32); CHLORIDE LEVEL 99 MEQ/L (98-107); CREATININE FOR GFR 0.75 MG/DL (0.55-1.30); GLOMERULAR FILTRATION RATE > 60.0 (>32); GLUCOSE, FASTING 90 MG/DL (70-100); POTASSIUM SERUM 4.1 MEQ/L (3.5-5.1); SODIUM LEVEL 137 MEQ/L (136-145)
[2019-05-05 15:05] LABS: ERYTHROCYTE SEDIMENTATION RATE 56 mm/hr (0-30)
[2019-05-05] MEDS ORDERED: CEPHALEXIN 500 MG CAP PO ONE (18:00)
[2019-05-05] MEDS ORDERED: KEFL500C17 PO (18:01)
[2019-05-05 18:29] VITALS: BP 138/66
--- NOTE | 2019-05-05 19:14 | CR ---
DATE OF CONSULTATION: 05/05/2019 INDICATION: Possible left leg cellulitis. HISTORY OF PRESENT ILLNESS: Shelly is a pleasant 84-year-old female who underwent a left total knee arthroplasty by Dr. Duke around that 04/26/2019. She was scheduled to start physical therapy this morning, but actually presented to the emergency room (ER) with worsening pain in her ankle and foot for 24 hours. Patient specifically denied any fevers, chills or sweats. She specifically denies any worsening knee pain. Her pain is really down in the foot and ankle. She points to the heel pads as the area of maximal pain. She denies any worsening stiffness in the knee. For the rest the patient's past medical history, past surgical history, medications, allergies, social history and review of systems, please see the patient's recent history and physical (H and P) from her total knee arthroplasty admission. PHYSICAL EXAMINATION: This is a well-appearing elderly female in no distress. Alert and oriented times three.. NEUROLOGIC: Appropriate mood, pleasant affect. CARDIOVASCULAR: 2+ posterior tibial (PT) pulse. PULMONARY: Nonlabored breathing. SKIN OF THE LEFT KNEE: The Optifoam dressing over the left total knee incision was removed. The incision is clean, dry and intact. There is no drainage from the knee. A small to moderate effusion, as expected. Shohola still in place. No sign of wound dehiscence. There is minimal increased warmth in the left leg compared to the right. There is extensive bruising, most notably from the midcalf down into the ankle. The only real areas of tenderness to palpation were at the plantar fascia origin. She is able to fire extensor hallucis longus (EHL), flexor hallucis longus (FHL), tibialis anterior (TA) and GS. Sensation light touch was intact. I was able to passively arrange her knee from zero to 50 degrees with zero pain. She says that is about what her knee had been bending. There was some pinkish discoloration at the very distal lateral aspect of the knee, but not adjacent the incision. There is also some pinkish discoloration along the medial border of the tibia. X-rays of the left knee, tib/fib and ankle were obtained in the ER available for my review. She is status post left total knee arthroplasty with well positioned components. No fractures. No dislocations. There is a suprapatellar effusion, which is typical with recent total knee arthroplasty. No signs of fracture of the tibia or foot. LABORATORY DATA: C-reactive protein of 10.3. White blood cell count 8.7. Erythrocyte sedimentation rate 5.6. Blood cultures were also sent. There are pending at this time. ASSESSMENT/PLAN: Ms. Lozano is an 84-year-old female with worsening left foot pain most consistent with plantar fasciitis and she may have an early cellulitis mid calf. I discussed this case with one of my partners. I think a knee aspiration is unwarranted at this point, given there is no worsening pain. There is no sign of wound drainage or dehiscence and no fevers. These elevated labs are entirely consistent with postoperative immune response as well as possible cellulitis. Most of her pain, I actually informed her, seems to be more of a plantar fasciitis. PLAN: At this point, I applied a new sterile dressing with 4x4 gauze and Tegaderm. She needs to start therapy as soon as possible for range of motion. She is already scheduled to see one of the physician assistants (PAs) in the office in 48 hours, on 05/07/2019. I wrote down specifically for them to ask the PA to order a repeat CRP on Friday so we can make sure that is going in the correct direction. I think it is safest at this point to start the patient on Keflex for early cellulitis. ER will provide that prescription to the patient. We discussed concerning signs would be fevers greater than 101, worsening knee pain, knee pain with weightbearing, worsening range of motion or drainage. She knows to come to the ER or to the office if any of those develop. Patient was relieved to not need a knee aspiration. She will be weightbearing as tolerated with a walker.
== END 2019-05-05 19:02 | disposition home or self-care (01) ==
LOC: M ED 11:37 → EDBD 11:37 → M ED 19:02
DX: M72.2 Plantar fascial fibromatosis (principal); L03.116 Cellulitis of left lower limb; Z96.652 Presence of left artificial knee joint; M79.89 Other specified soft tissue disorders; M19.90 Unspecified osteoarthritis, unspecified site; H40.9 Unspecified glaucoma; G43.909 Migraine, unspecified, not intractable, without status migrainosus; Z79.899 Other long term (current) drug therapy; Z79.01 Long term (current) use of anticoagulants

== ENCOUNTER → 2019-05-07 | Outpatient (REF) | payer MEDICARE, BC ==
[~2019-05-07] MED LIST changes: +KEFL500C17 PO
[2019-05-07 11:51] LABS: BASO % 0.4 % (0.0-1.0); EOS # 0.3 10^3/uL (0.0-0.50); EOS % 3.3 % (0.0-3.0); HEMATOCRIT 33.2 % (36.0-47.0); HEMOGLOBIN 10.2 g/dl (12.0-15.5); LYMPH # 1.2 10^3/uL (1.5-4.5); LYMPH % 14.4 % (24.0-44.0); MEAN CORPUSCULAR HEMOGLOBIN 28.3 pg (27.0-33.0); MEAN CORPUSCULAR HGB CONC 30.7 g/dl (32.0-36.5); MONO # 0.8 10^3/uL (0.0-0.8); MONO % 8.9 % (0.0-5.0); NEUTROPHILS # 6.1 10^3/uL (1.8-7.7); NEUTROPHILS % 72.3 % (36.0-66.0); PLATELET COUNT, AUTOMATED 467 10^3/uL (150-450); RED BLOOD COUNT 3.61 10^6/uL (4.00-5.40); WHITE BLOOD COUNT 8.4 10^3/uL (4.0-10.0)
[2019-05-07 12:23] LABS: ERYTHROCYTE SEDIMENTATION RATE 54 mm/hr (0-30)
== END ==
LOC: M LABDRAW1 11:24
PROVIDERS: ATTEND Physician Assistant
DX: Z47.1 Aftercare following joint replacement surgery (principal)

== ENCOUNTER → 2021-09-26 | Outpatient (CLI) | payer BC, MEDICARE | LOC: M LABSMTC 10:22 | PROVIDERS: ATTEND Pediatrics | DX: Z20.822 Contact with and (suspected) exposure to COVID-19 (principal) | CPT/HCPCS: C9803; U0003 ==

== ENCOUNTER 2021-10-01 11:51 | Outpatient (CLI) | payer MEDICARE ==
[~2021-10-01] VITALS: Ht 152.4 cm; Wt 72.6 kg
[~2021-10-01 11:51] MED LIST changes: +ALBUTEROL 90 MCG/ACT 8GM HFA INHALER INH PRN; +ALBUTEROL SULFATE 2.5 MG/0.5 ML INH NEB SOLN INH PRN; +EPINEPHrine INJ 1 MG/ML 1ML AMP IM PRN; +NS 1,000 ML IV SCH; +diphenhydrAMINE 50MG/ML VIAL (J1200) IV PRN; +methylPREDNISolone 125MG 2ML VIAL IV PRN
[2021-10-01] MEDS ORDERED: CASIRIVIMAB (REGN10933) 600 MG, IMDEVIMAB (REGN10987) 600 MG in NS 250 ML IV ONE (12:30)
[2021-10-01] MEDS ORDERED: ACETAMINOPHEN TAB 650MG DOSE (2X325MG) PO ONE (12:30)
[2021-10-01] MEDS ORDERED: diphenhydrAMINE 25MG CAP PO ONE (12:30)
[2021-10-01 12:54] VITALS: BP 147/65
[2021-10-01 13:24] VITALS: BP 145/64
[2021-10-01 13:54] VITALS: BP 144/61
[2021-10-01 14:54] VITALS: BP 158/67
== END 2021-10-01 14:54 | disposition home or self-care (01) ==
LOC: M OPCLI4PR 11:51
PROVIDERS: ATTEND Nurse Practitioner Adult Health
DX: U07.1 COVID-19 (principal)

== ENCOUNTER 2024-01-17 20:41 | Emergency (ER) | payer MEDICARE ==
[~2024-01-17] VITALS: Ht 152.4 cm; Wt 72.7 kg
[~2024-01-17 20:41] MED LIST changes: -ALBUTEROL 90 MCG/ACT 8GM HFA INHALER INH PRN; -ALBUTEROL SULFATE 2.5 MG/0.5 ML INH NEB SOLN INH PRN; -COSO1SOL3 OU; +DORZ10DR10 OU; -EPINEPHrine INJ 1 MG/ML 1ML AMP IM PRN; -NS 1,000 ML IV SCH; -diphenhydrAMINE 50MG/ML VIAL (J1200) IV PRN; -methylPREDNISolone 125MG 2ML VIAL IV PRN
[2024-01-17] MEDS: LIDOCAINE 5% (LIDODERM) PATCH TD ONE (22:43)
[2024-01-17] MEDS: traMADol 50 MG TAB PO ONE (22:44)
[2024-01-17] MEDS ORDERED: TRAM50TA2 PO (23:29)
[2024-01-17] MEDS ORDERED: LIDO5DIS41 TD (23:30)
[2024-01-17 23:32] VITALS: BP 158/86; TEMP 97.8; O2SAT 97
== END 2024-01-17 23:48 | disposition home or self-care (01) ==
LOC: M ED 20:41 → EDBD 20:41 → M ED 23:48
DX: M54.40 Lumbago with sciatica, unspecified side (principal); M51.37 Other intervertebral disc degeneration, lumbosacral region; H40.9 Unspecified glaucoma; Z87.442 Personal history of urinary calculi; Z79.891 Long term (current) use of opiate analgesic; Z79.899 Other long term (current) drug therapy

== ENCOUNTER 2024-01-21 02:49 | Emergency (ER) | payer MEDICARE ==
[~2024-01-21] VITALS: Ht 152.4 cm; Wt 72.7 kg
[~2024-01-21 02:49] MED LIST changes: +LIDO5DIS41 TD
[2024-01-21] MEDS ORDERED: CYCL5TAB (03:08)
[2024-01-21] MEDS: diazePAM 10MG/2ML SYRINGE IM ONE (08:34)
[2024-01-21] MEDS: KETOROLAC 30 MG/ML 1ML VIAL IM ONE (08:35)
[2024-01-21 09:54] VITALS: BP 145/67; TEMP 97.6; O2SAT 98
== END 2024-01-21 10:14 | disposition home or self-care (01) ==
LOC: M ED 02:49
DX: M54.41 Lumbago with sciatica, right side (principal); I50.22 Chronic systolic (congestive) heart failure; G43.909 Migraine, unspecified, not intractable, without status migrainosus; Z79.891 Long term (current) use of opiate analgesic; Z79.01 Long term (current) use of anticoagulants; Z79.818 Long term (current) use of other agents affecting estrogen receptors and estrogen levels; Z79.899 Other long term (current) drug therapy
CPT/HCPCS: 96372; 99284; J1885; J3360

== ENCOUNTER → 2024-06-01 | Outpatient (REF) | payer MEDICARE ==
[~2024-06-01] MED LIST changes: +CYCL5TAB; +ONDA-282 PO; -ONDA4TAB6 PO
== END ==
LOC: M LAB REF 13:15
PROVIDERS: ATTEND Internal Medicine
DX: E21.3 Hyperparathyroidism, unspecified (principal)